=== PATIENT | female | born 1930 | race Caucasian/White ===

== ENCOUNTER → 2018-11-13 | Outpatient (CLI) | payer MEDICARE, OTHER ==
[~2018-11-13] MED LIST: AVAPRO75 MG PO; CARDIOTEK-RX T1 EACH PO; CARVEDILOL6.25 MG PO; CEPHALEXIN 500500 M1 PO; COLACE100 MG PO; DIOVAN 80 MG TA80 M1 PO; DOXEPIN 10 MG C10 MG PO; FUROSEMIDE 40 M40 M1 PO; HAIR VITAMIN1 EACH PO; KRILL OIL500 MG PO; LASIX 40 MG TAB40 M2 PO; LASIX 80 MG TAB80 M1 PO; NEXIUM 40 MG CA40 M1 PO; POTASSIUM20 PO; PROAIR HFA8.5 GM INH; SORINE 80 MG TA80 M1 PO; SULFAZINE EC500 MG PO; SYMBICORT160 MCG/4. PO; SYNTHROID25 MC1 PO; VITAMIN D2000 UNIT PO; XARELTO15 MG PO
[2018-11-13 12:15] VITALS: BP 132/72
--- NOTE | 2018-11-13 16:05 | EKG ---
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: : 1930 Requested By: Abhijeet Golden Order Number: [id number] Reading MD: Rahul Orellana Measurements Intervals [place] Rate: 70 P: 40 SD: 170 QRS: 45 QRSD: 95 T: 61 QT: 476 QTc: 514 Interpretive Statements Sinus rhythm Borderline T abnormalities, anterior leads Prolonged QT interval No previous ECG available for comparison Electronically Signed On 11-13-2018 16:05:04 [employer] by Rahul Orellana [email or web address] <ELECTRONICALLY SIGNED> By: Rahul Orellana MD, [facility] 11/13/18 1605 [id number] [id number] Rahul Orellana MD, FACC /EPI
== END | disposition home or self-care (01) ==
LOC: M.CL 12:00
DX: I48.91 Unspecified atrial fibrillation (principal); Z53.8 Procedure and treatment not carried out for other reasons; Z88.8 Allergy status to other drugs, medicaments and biological substances; Z79.899 Other long term (current) drug therapy; Z79.01 Long term (current) use of anticoagulants